=== PATIENT | female | born 1955 | race Caucasian/White ===

== ENCOUNTER → 2016-06-30 | Outpatient (CLI) | payer OTHER | LOC: BMCIMAGING 15:07 | PROVIDERS: ATTEND Internal Medicine | DX: R10.2 Pelvic and perineal pain (principal); D25.2 Subserosal leiomyoma of uterus ==

== ENCOUNTER → 2016-11-25 | Outpatient (CLI) | payer OTHER | LOC: FIMAGING 15:29 | PROVIDERS: ATTEND Internal Medicine | DX: Z12.31 Encounter for screening mammogram for malignant neoplasm of breast (principal); Z80.3 Family history of malignant neoplasm of breast | CPT/HCPCS: G0202 ==

== ENCOUNTER → 2017-11-28 | Outpatient (CLI) | payer OTHER | LOC: FIMAGING 15:53 | PROVIDERS: ATTEND Internal Medicine | DX: Z12.31 Encounter for screening mammogram for malignant neoplasm of breast (principal); Z80.3 Family history of malignant neoplasm of breast ==

== ENCOUNTER 2018-06-16 14:05 | Emergency (ER) | payer OTHER ==
[2018-06-16 14:10] VITALS: BP 166/83
--- NOTE | 2018-06-16 14:15 | EDPHY ---
H & P Stated Complaint: NEEDLE STICK Time Seen by Provider: 06/16/18 14:11 - Personal History Current Tetanus Diphtheria and Acellular Pertussis (TDAP): Yes - Medical/Surgical History Other PMH: GLADYS SHOULDER SURGERY, KNEE SURGERY, AFIB - Social History Smoking Status: Never smoked Constitutional: Initial Vital Signs Temperature (C) 36.4 C 06/16/18 14:08 Heart Rate 78 06/16/18 14:08 Respiratory Rate 16 06/16/18 14:08 Blood Pressure 166/83 H 06/16/18 14:08 O2 Sat (%) 98 06/16/18 14:08 O2 Delivery Mode Room Air Allergies/Adverse Reactions: No Known Allergies Allergy (Unverified 06/16/18 14:08) Home Medications: Medication Instructions Recorded NK [No Known Home Meds] 06/16/18 Medical Decision Making ED Course/Re-evaluation: CHIEF COMPLAINT: Needle stick HISTORY OF PRESENT ILLNESS: The patient is a 62 y/o female complaining of a needle stick at [employer], where she works at. 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 When the patient went to order picker the needle, the needle stuck through the cover and pricked the patient in her thumb. The thumb did bleed but she tried to squeeze out the blood. 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 The patient today is not vaccinated against hepatis B. No fever, headache, body aches, lightheadedness, chest pain, heart palpitations, shortness of breath, cough, abdominal pain, urinary or bowel complaints, numbness, paresthesias. REVIEW OF SYSTEMS: A comprehensive 10 system review of systems is otherwise negative aside from elements mentioned in the history of present illness and medical decision making. PHYSICAL EXAM: HR, BP, O2 Sat, RR. Temp noted General Appearance: Alert, well hydrated, appropriate, and non-toxic appearing. Head: Atraumatic without scalp tenderness or obvious injury Eyes: Pupils equal, round, reactive to light and accommodation, EOMI, no trauma , no injection. Ears: Clear bilaterally, no perforation, normal landmarks Nose: Atraumatic, no rhinorrhea, clear. Throat: There is no erythema or exudates, no lesions, normal tonsils, mucus membranes moist. Neck: Supple, 2+ carotid upstroke, nontender, no lymphadenopathy. Respiratory: No retractions, no distress, no wheezes, and no accessory muscle use. Lungs are clear to auscultation bilaterally. Cardiovascular: Regular rate and rhythm, no murmurs, rubs, or gallops. Bilateral carotid, radial, dorsalis pedis, and posterior tibial pulses intact. Good capillary refill all extremities. Gastrointestinal: Abdomen is soft, nontender, non-distended, no masses, no rebound, no guarding, no peritoneal signs. Musculoskeletal: Normal active ROM of all extremities, atraumatic. Neurological: Alert, appropriate, and interactive. The patient has normal DTRs and non-focal cranial nerves, motor, sensory, and cerebellar exam. Skin: No rashes, good turgor, no nodules on palpation. Past medical history: Atrial fibrillation Past surgical history: Bilateral shoulder surgery, knee surgery Family history: Denies Social history: Employed, DIAGNOSTICS/PROCEDURES/CRITICAL CARE TIME: Not indicated. DIFFERENTIAL DIAGNOSIS: The differential diagnosis includes but is not limited to needle stick, hepatitis exposure, HIV exposure. MEDICAL DECISION MAKING: The patient is a 62 y/o female presenting with a needle stick at [employer] [employer], where she works at. The student is a 4th grader and is fully vaccinated who was giving himself an insulin shot. The patient today is not vaccinated against Hepatitis B. The probability of her charisma an infection is low. She has a normal physical exam. I offered the hepatitis B vaccination series, and he patient would like to do these with her PCP. Immunoglobulin not indicated at this time. We will draw blood to establish a baseline. I have advised her to follow up with the [facility] and her PCP. Return precautions provided; patient is comfortable with this plan. Departure - Departure Disposition: Home, Routine, Self-Care Clinical Impression: Needle stick injury of finger Qualifiers: Encounter type: initial encounter Qualified Code(s): S61.239A - Puncture wound without foreign body of unspecified finger without damage to nail, initial encounter Condition: Good Instructions: Needle Stick Injuries (ED) Additional Instructions: 1. Follow up with the [facility]. 2. Follow up with your PCP for a Hepatitis B vaccination series. 3. Return to the Emergency Department for fever, chest pain, shortness of breath , increasing pain or other worsening of condition. Referrals: Sabina Julien MD [Primary Care Provider] - As per Instructions [facility] [Edm Groups for Call Sched] - As per Instructions Report Scribed for: René Garnica Report Scribed by: Bushra Ennis Date of Report: 06/16/18 Time of Report: 14:22
[2018-06-16 15:47] LABS: HEPATITIS B SURFACE ANTIGEN NEGATIVE (NEGATIVE)
[2018-06-16 16:12] LABS: HEPATITIS B CORE AB IGM NEGATIVE (NEGATIVE); HEPATITIS C ANTIBODY TOTAL NEGATIVE (NEGATIVE); HIV TYPE 1 AND 2 NEGATIVE (NEGATIVE)
== END 2018-06-16 14:39 | disposition home or self-care (01) ==
DX: S61.039A Puncture wound without foreign body of unspecified thumb without damage to nail, initial encounter (principal); W46.1XXA Contact with contaminated hypodermic needle, initial encounter; Y92.211 Elementary school as the place of occurrence of the external cause; Y99.0 Civilian activity done for income or pay
CPT/HCPCS: 86705-90; G0472